=== PATIENT | male | born 1995 | race Caucasian/White ===

== ENCOUNTER 2016-07-18 09:04 | Emergency (ER) | payer SELFPAY ==
--- NOTE | 2016-07-18 09:37 | ER Document Report ---
ED Medical Screen (RME) - General Chief Complaint: Abscess Stated Complaint: HIP PAIN Notes: This 20-year-old male patient comes emergency room with 3 month history of draining sores/abscess to right lateral hip. He has never been seen for this. I have greeted and performed a rapid initial assessment of this patient. A comprehensive ED assessment and evaluation of the patient, analysis of test results and completion of the medical decision making process will be conducted by additional ED providers. TRAVEL OUTSIDE OF THE [place] IN LAST 30 DAYS: No Past Medical History Renal/ Medical History: Denies: Hx Peritoneal Dialysis Physical Exam - Vital signs Vitals: Temp Pulse Resp BP Pulse Ox 98.3 F 60 16 143/66 H 98 07/18/16 09:17 07/18/16 09:17 07/18/16 09:07/18/16 09:17 07/18/16 09:17 Course - Vital Signs Vital signs: Temp Pulse Resp BP Pulse Ox 98.3 F 60 16 143/66 H 98 07/18/16 09:17 07/18/16 09:17 07/18/16 09:17 07/18/16 09:07/18/16 09:17
--- NOTE | 2016-07-18 10:28 | ER Document Report ---
HPI - HPI Patient complains to provider of: wound Onset: Other - 3 months Onset/Duration: Persistent Quality of pain: Achy Pain Level: 2 Context: Patient states that he had a pimple-like lesion that initially got larger and has not healed for the past 3 months. Patient states that the wound currently has not gotten any worse, but he needs the wound to heal so that he can enlist in the . Patient states that he has been treating the wound by cleaning it 3 times a day with iodine and occasionally peroxide. Patient denies any history of diabetes or fever. She denies any history of MRSA. Patient also states that he had been wearing tight jeans that would rub the area until recently being advised by his family to wear looser clothing. Associated Symptoms: Other - Wound to right hip Exacerbated by: Denies Relieved by: Denies Similar symptoms previously: No Recently seen / treated by doctor: No - ROS ROS below otherwise negative: Yes Systems Reviewed and Negative: Yes All other systems reviewed and negative - CONSTITUTIONAL Constitutional: DENIES: Fever, Chills - GASTROINTESTINAL Gastrointestinal: DENIES: Nausea - DERM Skin Color: Normal Notes: Wound to right hip Past Medical History - General Information source: Patient - Social History Smoking Status: Never Smoker Frequency of alcohol use: None Drug Abuse: None Occupation: none Lives with: Family Family History: Reviewed & Not Pertinent Patient has suicidal ideation: No Patient has homicidal ideation: No - Medical History Medical History: Negative Endocrine Medical History: Denies: Hx Diabetes Mellitus Type 1, Hx Diabetes Mellitus Type 2 Renal/ Medical History: Denies: Hx Peritoneal Dialysis Surgical Hx: Negative Vertical Provider Document - CONSTITUTIONAL Agree With Documented VS: Yes Exam Limitations: No Limitations General Appearance: WD/WN, No Apparent Distress - INFECTION CONTROL TRAVEL OUTSIDE OF THE [place] IN LAST 30 DAYS: No - HEENT HEENT: Atraumatic, Normocephalic - NECK Neck: Normal Inspection, Supple - RESPIRATORY Respiratory: Breath Sounds Normal, No Respiratory Distress O2 Sat by Pulse Oximetry: 98 - CARDIOVASCULAR Cardiovascular: Regular Rate, Regular Rhythm, No Murmur - BACK Back: Normal Inspection - MUSCULOSKELETAL/EXTREMETIES Musculoskeletal/Extremeties: MAEW - NEURO Level of Consciousness: Awake, Alert, Appropriate Motor/Sensory: No Motor Deficit - DERM Integumentary: Warm, Dry Adult Front & Back Diagram: 1 - 2 open wounds to right hip area, no surrounding erythema, no purulent drainage noted wound bed, superior wound measures 1 cm, inferior wound measures 1.5 cm Course - Vital Signs Vital signs: Temp Pulse Resp BP Pulse Ox 98.3 F 60 16 143/66 H 98 07/18/16 09:07/18/16 09:07/18/16 09:17 07/18/16 09:07/18/16 09:17 - Laboratory Laboratory results interpreted by me: 07/18/16 09:39 POC Glucose 116 H Discharge - Discharge Clinical Impression: Wound, open, hip or thigh Qualifiers: Encounter type: initial encounter Laterality: right Qualified Code(s): S71.001A - Unspecified open wound, right hip, initial encounter Condition: Stable Disposition: HOME, SELF-CARE Instructions: Trimethoprim-Sulfa ([facility]), Dressing Instructions for Open Wounds ( [facility]) Additional Instructions: Return immediately for any new or worsening symptoms Followup with your primary care provider, call tomorrow to make a followup appointment Keep wound covered as it continues to heal Clean wound twice a day with antibacterial soap and water. Prescriptions: Mupirocin [Bactroban 2% Ointment 22 gm] 1 applic TP TID #22 gm Sulfamethoxazole/Trimethoprim [Bactrim Ds Tablet] 1 each PO BID #[id number] tablet Referrals: [facility] [Provider Group] - Follow up as needed
[2016-07-18 10:47] VITALS: BP 143/80
== END 2016-07-18 10:47 | disposition home or self-care (01) ==
LOC: ER 09:04
DX: S71.001A Unspecified open wound, right hip, initial encounter (principal); X58.XXXA Exposure to other specified factors, initial encounter
CPT/HCPCS: 82962; 99283